=== PATIENT | female | born 1995 | race Caucasian/White ===

== ENCOUNTER 2018-01-17 14:22 | Inpatient (IN) | payer BC ==
[2018-01-17] MEDS ORDERED: Ondansetron 4 MG/2 ML SDV IVPUSH PRN ×2 (15:02→18:30)
[2018-01-17] MEDS ORDERED: Nalbuphine 20 MG/1 ML Amp IVPUSH PRN (15:02)
[2018-01-17] MEDS ORDERED: Sodium Chloride 0.9% 10 ML Syringe FLUSH PRN (15:02)
[2018-01-17] MEDS ORDERED: Oxytocin/Lactated Ringers 10 UNIT/1,000 ML BAG IV SCH ×2 (15:15)
[2018-01-17] MEDS ORDERED: Penicillin G Potassium 5,000,000 Unit Vial ONE (15:19)
[2018-01-17] MEDS: Lactated Ringers 1,000 ML IV SCH ×5 (15:25→23:28)
[2018-01-17] MEDS ORDERED: Penicillin G Potassium 5 MILLUNITS in Sodium Chloride 0.9% 100 ML IV SCH (15:30)
[2018-01-17] MEDS ORDERED: ePHEDrine 50 MG/ML SDV IVPUSH PRN (18:30)
[2018-01-17] MEDS ORDERED: Bupivacaine/fentaNYL/NS 100 ML Bag EPIDUR SCH (18:30)
[2018-01-17] MEDS ORDERED: fentaNYL 100 MCG/2 ML SDV EPIDUR PRN (18:30)
[2018-01-17] MEDS ORDERED: diphenhydrAMINE 50 MG/ML SDV IVPUSH PRN (18:30)
--- NOTE | 2018-01-17 18:30 | PCM.PREANE ---
Preanesthetic Assessment - Anesthesia/Transfusion/Family Hx Anesthesia History: Prior Anesthesia Without Reaction Family History of Anesthesia Reaction: No Transfusion History: No Prior Transfusion(s) - Review of Systems General: No Symptoms Pulmonary: No Symptoms Cardiovascular: No Symptoms Gastrointestinal: No Symptoms Neurological: No Symptoms Other: Reports: None - Physical Assessment Pulse: 95 O2 Sat by Pulse Oximetry: 99 Respiratory Rate: 18 Blood Pressure: 141/89 Vital Signs: Last Vital Signs Temp 36.7 C 01/17/18 15:02 Pulse 95 01/17/18 15:30 Resp 18 01/17/18 15:02 BP 141/89 H 01/17/18 15:30 Pulse Ox Height: 1.63 m Weight: 95.453 kg ASA Class: 2 Mental Status: Alert & Oriented x3 Airway Class: Mallampati = 1 Dentition: Reports: Normal Dentition Thyro-Mental Finger Breadths: 3 Mouth Opening Finger Breadths: 3 ROM/Head Extension: Full Lungs: Clear to Auscultation, Normal Respiratory Effort Cardiovascular: Regular Rate, Regular Rhythm - Lab Values: Laboratory Last Values WBC 9.05 K/mm3 (3.98-10.04) 01/17/18 15:25 RBC 3.64 M/mm3 (3.98-5.22) L 01/17/18 15:25 Hgb 11.1 gm/L (11.2-15.7) L 01/17/18 15:25 Hct 32.0 % (34.1-44.9) L 01/17/18 15:25 MCV 87.9 fl (79.4-94.8) 01/17/18 15:25 MCH 30.5 pg (25.6-32.2) 01/17/18 15:25 MCHC 34.7 g/dl (32.2-35.5) 01/17/18 15:25 RDW Std Deviation 39.9 fL (36.4-46.3) 01/17/18 15:25 Plt Count 253 K/mm3 (182-369) 01/17/18 15:25 MPV 11.1 fl (9.4-12.3) 01/17/18 15:25 Creatinine 0.6 mg/dL (0.55-1.02) 01/17/18 15:25 Est Cr Clr Drug Dosing 123.77 mL/min 01/17/18 15:25 Estimated GFR (MDRD) > 60 mL/min (>60) 01/17/18 15:25 AST 19 U/L (15-37) 01/17/18 15:25 ALT 25 U/L (14-59) 01/17/18 15:25 Blood Type A NEGATIVE 01/17/18 15:25 Gel Antibody Screen Positive 01/17/18 15:25 - Allergies Allergies/Adverse Reactions: Allergies Allergy/AdvReac Type Severity Reaction Status Date / Time No Known Allergies Allergy Verified 01/17/18 15:08 - Acknowledgements Anesthesia Type Planned: Epidural Pt an Appropriate Candidate for the Planned Anesthesia: Yes Alternatives and Risks of Anesthesia Discussed w Pt/Guardian: Yes Pt/Guardian Understands and Agrees with Anesthesia Plan: Yes PreAnesthesia Questionnaire HEENT History: Reports: Allergic Rhinitis, Other (See Below) Other HEENT History: polyps 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 Smoking Status *Q: Former Smoker Tobacco Use Within Last Twelve Months: Cigarettes Recreational Drug Use History: No - HOME MEDS Home Medications: Home Meds PNV95/Ferrous Fumarate/FA [ Tablet] 1 each PO DAILY 01/17/18 [History] - CURRENT (IN HOUSE) MEDS Current Meds: Current Medications Lactated Ringer's (Ringers, Lactated) 1,000 mls @ 40 mls/hr IV ASDIRECTED MANNY Last Admin: 01/17/18 15:25 Dose: 40 mls/hr Oxytocin/Lactated Ringer's (Pitocin In Lr 10 Units/1,000 Ml) 10 unit in 1,000 mls @ 500 mls/hr IV .CONTINUOUS MANNY Oxytocin/Lactated Ringer's (Pitocin In Lr 10 Units/1,000 Ml) 10 unit in 1,000 mls @ 12 mls/hr IV TITRATE MANNY; Protocol Last Titration: 01/17/18 18:06 Dose: 4 munits/min, 24 mls/hr Penicillin G Potassium 5 (millunits/ Sodium Chloride) 100 mls @ 55 mls/hr IV ONETIME MANNY Last Admin: 01/17/18 15:32 Dose: 55 mls/hr Penicillin G Potassium 2.5 (millunits/ Sodium Chloride) 100 mls @ 55 mls/hr IV Q4H MANNY Nalbuphine HCl (Nubain) 10 mg IVPUSH Q2H PRN PRN Reason: Pain (moderate 4-6) Ondansetron HCl (Zofran) 4 mg IVPUSH Q4H PRN PRN Reason: Nausea/Vomiting Sodium Chloride (Saline Flush) 10 ml FLUSH ASDIRECTED PRN PRN Reason: Keep Vein Open Discontinued Medications Penicillin G Potassium (Pfizerpen) Confirm Administered Dose 5 millunits .ROUTE .Sientra-MED ONE Stop: 01/17/18 15:20
[2018-01-17] MEDS: Penicillin G Potassium 2.5 MILLUNITS in Sodium Chloride 0.9% 100 ML IV SCH ×2 (19:32→23:25)
[2018-01-18] MEDS ORDERED: Bupivacaine 0.25% 10 ML SDV ONE (01:00)
--- NOTE | 2018-01-18 02:12 | PCM.LDHP ---
L&D History of Present Illness - General Date of Service: 01/18/18 Admit Problem/Dx: Patient Status Order with Admit Dx/Problem 01/17/18 15:03 Patient Status [ADT] Routine Admission Diagnosis/Problem Admission Diagnosis/Problem High risk Source of Information: Patient History Limitations: Reports: No Limitations - History of Present Illness Introduction:: 23 year old at 37w4d presented to clinic with blood pressures 150s/90-100. No symptoms. PNC with myself c/b GBS positive. 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: Social & Family History - Family History Family Medical History: Noncontributory - Tobacco Use Smoking Status *Q: Former Smoker Years of Tobacco use: 7 Packs/Tins Daily: 0.5 Used Tobacco, but Quit: Yes Month/Year Tobacco Last Used: 05/2017 - Caffeine Use Caffeine Use: Reports: None - Recreational Drug Use Recreational Drug Use: No H&P Review of Systems - Review of Systems: Review Of Systems: See Below General: Reports: No Symptoms HEENT: Reports: No Symptoms Pulmonary: Reports: No Symptoms Cardiovascular: Reports: No Symptoms Gastrointestinal: Reports: No Symptoms Genitourinary: Reports: No Symptoms Musculoskeletal: Reports: No Symptoms Skin: Reports: No Symptoms Psychiatric: Reports: No Symptoms Neurological: Reports: No Symptoms Hematologic/Lymphatic: Reports: No Symptoms Immunologic: Reports: No Symptoms L&D Exam - Exam Exam: See Below - Vital Signs Vital Signs: Last Vital Signs Temp 36.7 C 01/17/18 15:02 Pulse 95 01/17/18 18:30 Resp 18 01/17/18 18:30 BP 141/89 H 01/17/18 18:30 Pulse Ox 99 01/17/18 18:30 Weight: 95.453 kg - OB Specific Fundal Height In cm: 37 Contraction Intensity: Mild Movement: Active Heart Tones: Present Heart Rate (FHR) Variability: Moderate (6-25 bmp) Presentation: Vertex - Urbina Score Urbina Score Cervix Position: Midposition Urbina Score Consistency: Soft Urbina Score Effacement: 31-50% Urbina Score Dilation: 1-2 cm Urbina Score Infant's Station: -2 Urbina Score Total: 6 - Exam General: Alert, Oriented HEENT: PERRLA, Conjunctiva Clear, EACs Clear, EOMI, Hearing Intact, Mucosa Moist & [place], Nares Patent, Normal Nasal Septum, Posterior Pharynx Clear, TMs Clear Neck: Supple, Trachea Midline Lungs: Clear to Auscultation, Normal Respiratory Effort Cardiovascular: Regular Rate, Regular Rhythm GI/Abdominal Exam: Normal Bowel Sounds, Soft, Non-Tender, No Organomegaly, No Distention, No Abnormal Bruit, No Mass, Pelvis Stable Rectal Exam: Normal Exam, Normal Rectal Tone Genitourinary: Normal external exam, Normal bimanual exam, Normal speculum exam Back Exam: Normal Inspection, Full Range of Motion Extremities: Normal Inspection, Normal Range of Motion, Non-Tender, No Pedal Edema, Normal Capillary Refill Neurological: Cranial Nerves Intact, Reflexes Equal Bilateral Psychiatric: Alert, Normal Affect, Normal Mood - Patient Data Lab Results Last 24 hrs: Laboratory Results - last 24 hr 01/17/18 01/17/18 01/17/18 Range/Units 15:25 15:25 15:25 WBC 9.05 (3.98-10.04) K/mm3 RBC 3.64 L (3.98-5.22) M/mm3 Hgb 11.1 L (11.2-15.7) gm/L Hct 32.0 L (34.1-44.9) % MCV 87.9 (79.4-94.8) fl MCH 30.5 (25.6-32.2) pg MCHC 34.7 (32.2-35.5) g/dl RDW Std Deviation 39.9 (36.4-46.3) fL Plt Count 253 (182-369) K/mm3 MPV 11.1 (9.4-12.3) fl Creatinine 0.6 (0.55-1.02) mg/dL Est Cr Clr Drug Dosing 123.77 mL/min Estimated GFR (MDRD) > 60 (>60) mL/min AST 19 (15-37) U/L ALT 25 (14-59) U/L Blood Type Gel Antibody Screen 01/17/18 Range/Units 15:25 WBC (3.98-10.04) K/mm3 RBC (3.98-5.22) M/mm3 Hgb (11.2-15.7) gm/L Hct (34.1-44.9) % MCV (79.4-94.8) fl MCH (25.6-32.2) pg MCHC (32.2-35.5) g/dl RDW Std Deviation (36.4-46.3) fL Plt Count (182-369) K/mm3 MPV (9.4-12.3) fl Creatinine (0.55-1.02) mg/dL Est Cr Clr Drug Dosing mL/min Estimated GFR (MDRD) (>60) mL/min AST (15-37) U/L ALT (14-59) U/L Blood Type A NEGATIVE Gel Antibody Screen Positive Result Diagrams: 01/17/18 15:25 01/17/18 15:25 Problem List Initiated/Reviewed/Updated: Yes Orders Last 24hrs: Active Orders 24 hr Category Date Time Status Patient Status [ADT] Routine ADT 01/17/18 15:03 Active Activity as Tolerated [RC] PFP Care 01/17/18 15:02 Active Communication Order [RC] ASDIRECTED Care 01/17/18 15:02 Active Communication Order [RC] ASDIRECTED Care 01/17/18 15:02 Active Communication Order [RC] ASDIRECTED Care 01/17/18 15:02 Active Monitoring [RC] CONTINUOUS Care 01/17/18 15:02 Active Notify Provider Status Change [RC] ASDIRECTED Care 01/17/18 15:02 Active Notify Provider Vital Signs [RC] ASDIRECTED Care 01/17/18 15:02 Active Notify Provider [RC] ASDIRECTED Care 01/17/18 15:02 Active Notify Provider [RC] ASDIRECTED Care 01/17/18 18:30 Active Notify Provider [RC] PRN Care 01/17/18 15:02 Active Oxygen Therapy [RC] PRN Care 01/17/18 15:02 Active Peripheral IV Care [RC] . DIRECTED Care 01/17/18 15:06 Active Vital Signs [RC] ASDIRECTED Care 01/17/18 15:02 Active Regular Diet [DIET] Diet 01/17/18 Dinner Active ANTIBODY IDENTIFICATION [BBK] Stat Lab 01/17/18 15:25 Results PATIENT RETYPE [BBK] Stat Lab 01/17/18 15:25 Results TYPE AND SCREEN [BBK] Stat Lab 01/17/18 15:25 Results Bupivacaine/fentaNYL/NS [fentaNYL/Bupivacaine/NS 2 MCG- Med 01/17/18 18:30 Active 0.125% 100 ML] 100 ml EPIDUR ASDIRECTED Lactated Ringers [Ringers, Lactated] 1,000 ml Med 01/17/18 15:15 Active IV ASDIRECTED Nalbuphine [Nubain] Med 01/17/18 15:02 Active 10 mg IVPUSH Q2H PRN Ondansetron [Zofran] Med 01/17/18 18:30 Active 4 mg IVPUSH ONETIME PRN Ondansetron [Zofran] Med 01/17/18 15:02 Active 4 mg IVPUSH Q4H PRN Oxytocin/Lactated Ringers [Pitocin in LR 10 Units/1,000 Med 01/17/18 15:15 Active ML] 10 unit in 1,000 ml IV .CONTINUOUS Oxytocin/Lactated Ringers [Pitocin in LR 10 Units/1,000 Med 01/17/18 15:15 Active ML] 10 unit in 1,000 ml IV TITRATE Penicillin G Potassium [Pfizerpen] 2.5 millunits Med 01/17/18 19:30 Active Sodium Chloride 0.9% [Normal Saline] 100 ml IV Q4H Penicillin G Potassium [Pfizerpen] 5 millunits Med 01/17/18 15:30 Active Sodium Chloride 0.9% [Normal Saline] 100 ml IV ONETIME Sodium Chloride 0.9% [Saline Flush] Med 01/17/18 15:02 Active 10 ml FLUSH ASDIRECTED PRN diphenhydrAMINE [Benadryl] Med 01/17/18 18:30 Active 25 mg IVPUSH Q6H PRN ePHEDrine [ePHEDrine Sulfate] Med 01/17/18 18:30 Active 5 mg IVPUSH ASDIRECTED PRN fentaNYL [Sublimaze] Med 01/17/18 18:30 Active 100 mcg EPIDUR ONETIME PRN Blood Pressure [OM.PC] ASDIRECTED Oth 01/17/18 15:15 Ordered Deep Tendon Reflexes [WOMSER] ASDIRECTED Oth 01/17/18 15:15 Ordered Peripheral IV Insertion Adult [OM.PC] Urgent Oth 01/17/18 15:02 Ordered Resuscitation Status Routine Resus Stat 01/17/18 15:02 Ordered Medication Orders Diphenhydramine HCl (Benadryl) 25 mg IVPUSH Q6H PRN PRN Reason: Pruritis Ephedrine Sulfate (Ephedrine Sulfate) 5 mg IVPUSH ASDIRECTED PRN PRN Reason: Hypotension Fentanyl (Sublimaze) 100 mcg EPIDUR ONETIME PRN PRN Reason: Pain Last Admin: 01/17/18 21:08 Dose: 100 mcg Fentanyl/Bupivacaine HCl (Fentanyl/Bupivacaine/Ns 2 Mcg-0.125% 100 Ml) 100 ml EPIDUR ASDIRECTED MANNY Last Admin: 01/17/18 21:08 Dose: 100 ml Lactated Ringer's (Ringers, Lactated) 1,000 mls @ 40 mls/hr IV ASDIRECTED MANNY Last Admin: 01/17/18 23:28 Dose: 40 mls/hr Infusion: 01/17/18 23:28 Dose: 40 mls/hr Admin: 01/17/18 21:47 Dose: 40 mls/hr Infusion: 01/17/18 21:47 Dose: 40 mls/hr Admin: 01/17/18 21:30 Dose: 40 mls/hr Infusion: 01/17/18 21:30 Dose: 40 mls/hr Admin: 01/17/18 20:29 Dose: 40 mls/hr Infusion: 01/17/18 20:29 Dose: 40 mls/hr Admin: 01/17/18 15:25 Dose: 40 mls/hr Oxytocin/Lactated Ringer's (Pitocin In Lr 10 Units/1,000 Ml) 10 unit in 1,000 mls @ 500 mls/hr IV .CONTINUOUS MANNY Oxytocin/Lactated Ringer's (Pitocin In Lr 10 Units/1,000 Ml) 10 unit in 1,000 mls @ 12 mls/hr IV TITRATE MANNY; Protocol Last Titration: 01/18/18 00:24 Dose: 8 munits/min, 48 mls/hr Titration: 01/17/18 23:40 Dose: 6 munits/min, 36 mls/hr Titration: 01/17/18 22:41 Dose: 4 munits/min, 24 mls/hr Titration: 01/17/18 22:10 Dose: 3 munits/min, 18 mls/hr Titration: 01/17/18 21:55 Dose: 1 munits/min, 6 mls/hr Titration: 01/17/18 21:41 Dose: 0 munits/min, 0 mls/hr Titration: 01/17/18 21:15 Dose: 3 munits/min, 18 mls/hr Titration: 01/17/18 20:22 Dose: 6 munits/min, 36 mls/hr Titration: 01/17/18 20:00 Dose: 7 munits/min, 42 mls/hr Titration: 01/17/18 18:31 Dose: 5 munits/min, 30 mls/hr Titration: 01/17/18 18:06 Dose: 4 munits/min, 24 mls/hr Titration: 01/17/18 16:23 Dose: 3 munits/min, 18 mls/hr Admin: 01/17/18 15:29 Dose: 2 munits/min, 12 mls/hr Penicillin G Potassium 5 (millunits/ Sodium Chloride) 100 mls @ 55 mls/hr IV ONETIME [facility] Last Admin: 01/17/18 15:32 Dose: 55 mls/hr Penicillin G Potassium 2.5 (millunits/ Sodium Chloride) 100 mls @ 55 mls/hr IV Q4H [facility] Last Admin: 01/17/18 23:25 Dose: 55 mls/hr Infusion: 01/17/18 21:22 Dose: 55 mls/hr Admin: 01/17/18 19:32 Dose: 55 mls/hr Nalbuphine HCl (Nubain) 10 mg IVPUSH Q2H PRN PRN Reason: Pain (moderate 4-6) Ondansetron HCl (Zofran) 4 mg IVPUSH Q4H PRN PRN Reason: Nausea/Vomiting Ondansetron HCl (Zofran) 4 mg IVPUSH ONETIME PRN PRN Reason: Nausea/Vomiting Sodium Chloride (Saline Flush) 10 ml FLUSH ASDIRECTED PRN PRN Reason: Keep Vein Open Assessment/Plan Comment:: Mild pre-ecclampsia. Discussed in [place] today with patient at appointment not safe to travel to [place] for delivery. Discussed and received approval from insurance for delivery in [place]. Admit. Labs. Pitocin. Anticipate
--- NOTE | 2018-01-18 02:15 | PCM.DEL ---
L & D Note - General Info Date of Service: 01/18/18 - Delivery Note Labor: Spontaneous, Induced by Oxytocin Delivery Outcome: Livebirth Delivery Mode: Spontaneous Presentation: Vertex Anesthesia Type: None Episiotomy Type: None Laceration: 2nd Degree Placenta: Intact, Spontaneous Score 1 min: 8 Score 5 min: 9 Delivery Comments (Free Text/Narrative):: Stage 1- Progressed nicely to complete with epidural anesthesia. Pitocin induction Stage 2- of viable female. SELENA. Body and shoulders followed atraumatically over small 2nd degree MLL Stage 3. of intact placenta. 3vc. Laceration repaired with 2-0 vicryl rapide. EBL 200. Induction Criteria - Urbina Score Urbina Score Dilation: 1-2 cm Urbina Score Effacement: 40-50% Urbina Score Infant's Station: -1 ,0 Urbina Score Consistency: Medium Urbina Score Cervix Position: Midposition Urbina Score Total: 6 Urbina Score Presenting Part: Reports: Cephalic - Induction Gestational Age >/= 39 wks: No Medical Indication: Mild pre-ecclampsia Estimated Pelvis: Reports: Adequate Reassuring Monitoring Strip: Yes Absence of Tachy Systole: Yes - Augmentation Weight Estimated:: Reports: AGA Reassuring Monitoring Strip: Yes Absence of Tachy Systole: Yes - Patient Data Vitals - Most Recent: Last Vital Signs Temp 36.7 C 01/17/18 15:02 Pulse 95 01/17/18 18:30 Resp 18 01/17/18 18:30 BP 141/89 H 01/17/18 18:30 Pulse Ox 99 01/17/18 18:30 Weight - Most Recent: 95.453 kg I&O - Last 24 Hours: Intake & Output 01/17/18 01/17/18 01/18/18 14:59 22:59 06:59 Intake Total 0 Balance 0 Lab Results Last 24 Hours: Laboratory Results - last 24 hr 01/17/18 01/17/18 01/17/18 Range/Units 15:25 15:25 15:25 WBC 9.05 (3.98-10.04) K/mm3 RBC 3.64 L (3.98-5.22) M/mm3 Hgb 11.1 L (11.2-15.7) gm/L Hct 32.0 L (34.1-44.9) % MCV 87.9 (79.4-94.8) fl MCH 30.5 (25.6-32.2) pg MCHC 34.7 (32.2-35.5) g/dl RDW Std Deviation 39.9 (36.4-46.3) fL Plt Count 253 (182-369) K/mm3 MPV 11.1 (9.4-12.3) fl Creatinine 0.6 (0.55-1.02) mg/dL Est Cr Clr Drug Dosing 123.77 mL/min Estimated GFR (MDRD) > 60 (>60) mL/min AST 19 (15-37) U/L ALT 25 (14-59) U/L Blood Type Gel Antibody Screen 01/17/18 Range/Units 15:25 WBC (3.98-10.04) K/mm3 RBC (3.98-5.22) M/mm3 Hgb (11.2-15.7) gm/L Hct (34.1-44.9) % MCV (79.4-94.8) fl MCH (25.6-32.2) pg MCHC (32.2-35.5) g/dl RDW Std Deviation (36.4-46.3) fL Plt Count (182-369) K/mm3 MPV (9.4-12.3) fl Creatinine (0.55-1.02) mg/dL Est Cr Clr Drug Dosing mL/min Estimated GFR (MDRD) (>60) mL/min AST (15-37) U/L ALT (14-59) U/L Blood Type A NEGATIVE Gel Antibody Screen Positive Med Orders - Current: Current Medications Diphenhydramine HCl (Benadryl) 25 mg IVPUSH Q6H PRN PRN Reason: Pruritis Ephedrine Sulfate (Ephedrine Sulfate) 5 mg IVPUSH ASDIRECTED PRN PRN Reason: Hypotension Fentanyl (Sublimaze) 100 mcg EPIDUR ONETIME PRN PRN Reason: Pain Last Admin: 01/17/18 21:08 Dose: 100 mcg Fentanyl/Bupivacaine HCl (Fentanyl/Bupivacaine/Ns 2 Mcg-0.125% 100 Ml) 100 ml EPIDUR ASDIRECTED MANNY Last Admin: 01/17/18 21:08 Dose: 100 ml Lactated Ringer's (Ringers, Lactated) 1,000 mls @ 40 mls/hr IV ASDIRECTED MANNY Last Admin: 01/17/18 23:28 Dose: 40 mls/hr Oxytocin/Lactated Ringer's (Pitocin In Lr 10 Units/1,000 Ml) 10 unit in 1,000 mls @ 500 mls/hr IV .CONTINUOUS MANNY Oxytocin/Lactated Ringer's (Pitocin In Lr 10 Units/1,000 Ml) 10 unit in 1,000 mls @ 12 mls/hr IV TITRATE MANNY; Protocol Last Titration: 01/18/18 00:24 Dose: 8 munits/min, 48 mls/hr Penicillin G Potassium 5 (millunits/ Sodium Chloride) 100 mls @ 55 mls/hr IV ONETIME MANNY Last Admin: 01/17/18 15:32 Dose: 55 mls/hr Penicillin G Potassium 2.5 (millunits/ Sodium Chloride) 100 mls @ 55 mls/hr IV Q4H MANNY Last Admin: 01/17/18 23:25 Dose: 55 mls/hr Nalbuphine HCl (Nubain) 10 mg IVPUSH Q2H PRN PRN Reason: Pain (moderate 4-6) Ondansetron HCl (Zofran) 4 mg IVPUSH Q4H PRN PRN Reason: Nausea/Vomiting Ondansetron HCl (Zofran) 4 mg IVPUSH ONETIME PRN PRN Reason: Nausea/Vomiting Sodium Chloride (Saline Flush) 10 ml FLUSH ASDIRECTED PRN PRN Reason: Keep Vein Open Discontinued Medications Penicillin G Potassium (Pfizerpen) Confirm Administered Dose 5 millunits .ROUTE .STK-MED ONE Stop: 01/17/18 15:20 - Problem List Review Problem List Initiated/Reviewed/Updated: Yes - My Orders Last 24 Hours: My Active Orders 01/17/18 Dinner Regular Diet [DIET] - Plan Plan:: Mild pre-ecclampsia. Discussed in [place] today with patient at appointment not safe to travel to [place] for delivery. Discussed and received approval from insurance for delivery in [place]. Admit. Labs. Pitocin. Anticipate
[2018-01-18] MEDS: Penicillin G Potassium 2.5 MILLUNITS in Sodium Chloride 0.9% 100 ML IV SCH ×3 (05:40→18:39)
[2018-01-18] MEDS ORDERED: Witch Hazel Medicated Pads 100/Jar TOP PRN (05:50)
[2018-01-18] MEDS ORDERED: Benzocaine/Menthol 20%-0.5% Spray 56 GM Canister TOP PRN (05:51)
[2018-01-18] MEDS: Ibuprofen 600 MG Tab PO PRN ×4 (06:25→21:09)
--- NOTE | 2018-01-18 07:30 | PCM48HPAN ---
Post Anesthesia Note - EVALUATION WITHIN 48HRS OF ANESTHETIC Vital Signs in Normal Range: Yes Patient Participated in Evaluation: Yes Respiratory Function Stable: Yes Airway Patent: Yes Cardiovascular Function Stable: Yes Hydration Status Stable: Yes Pain Control Satisfactory: Yes Nausea and Vomiting Control Satisfactory: Yes Mental Status Recovered: Yes Pulse Rate: 95 Resp Rate: 18 Blood Pressure: 141/89 - COMMENTS/OBSERVATIONS Free Text/Narrative:: no anesthesia complications noted
[2018-01-18] MEDS: Labetalol 100 MG Tab PO SCH ×2 (17:37→20:55)
--- NOTE | 2018-01-19 06:50 | PCM.DCSUM1 ---
Discharge Summary - Hospital Course Brief History: Admitted for induction for pre-ecclampsia. Reassuring heart tones. Progressed to complete and uncomplicated . - Discharge Data Discharge Date: 01/19/18 Discharge Disposition: Home, Self-Care 01 Condition: Good - Patient Instructions Diet: Usual Diet as Tolerated Activity: No Strenuous Activities, Rest and Relax Today Activity, Other: pelvic rest Driving: May Drive Today Showering/Bathing: May Shower Wound/Incision Care: Keep Operative Site/Wound Site Clean and Dry Notify Provider of: Fever, Increased Pain, Swelling and Redness, Drainage, Nausea and/or Vomiting - Discharge Plan Prescriptions/Med Rec: Ibuprofen [IJD: Ibuprofen] 600 mg PO Q6H PRN #60 tablet PRN Reason: Pain Labetalol [Normodyne] 100 mg PO BID 14 Days #28 tablet Home Medications: Home Meds PNV95/Ferrous Fumarate/FA [ Tablet] 1 each PO DAILY 01/17/18 [History] Benzocaine/Menthol [Dermoplast Pain Relief [place]] 1 gm TOP ASDIRECTED PRN canister 01/19/18 [Rx] Ibuprofen [IJD: Ibuprofen] 600 mg PO Q6H PRN #60 tablet 01/19/18 [Rx] Labetalol [Normodyne] 100 mg PO BID 14 Days #28 tablet 01/19/18 [Rx] Referrals: Lesley Richmond MD [Primary Care Provider] - (1-2 weeks for blood pressure recheck) - Discharge Summary/Plan Comment DC Time >30 min.: No - General Info Date of Service: 01/19/18 - Review of Systems General: Reports: No Symptoms HEENT: Reports: No Symptoms Pulmonary: Reports: No Symptoms Cardiovascular: Reports: No Symptoms Gastrointestinal: Reports: No Symptoms Genitourinary: Reports: No Symptoms Musculoskeletal: Reports: No Symptoms Skin: Reports: No Symptoms Neurological: Reports: No Symptoms Psychiatric: Reports: No Symptoms - Patient Data Vitals - Most Recent: Last Vital Signs Temp 36.4 C 01/19/18 04:17 Pulse 91 01/19/18 04:17 Resp 16 01/19/18 04:17 BP 151/86 H 01/19/18 04:17 Pulse Ox 100 01/19/18 04:17 Weight - Most Recent: 95.453 kg I&O - Last 24 hours: Intake & Output 01/18/18 01/18/18 01/19/18 14:59 22:59 06:59 Intake Total 0 Balance 0 Lab Results - Last 24 hrs: Laboratory Results - last 24 hr 01/18/18 Range/Units 06:43 Blood Type Cancelled Gel Antibody Screen Cancelled Screen 0 ros/5 flds - neg RhIG Candidate? Yes Rhogam Indicated Cancelled Med Orders - Current: Current Medications Benzocaine/Menthol (Dermoplast Pain Relief [place]) 1 gm TOP ASDIRECTED PRN PRN Reason: Pain Last Admin: 01/18/18 06:24 Dose: 1 applic Diphenhydramine HCl (Benadryl) 25 mg IVPUSH Q6H PRN PRN Reason: Pruritis Ephedrine Sulfate (Ephedrine Sulfate) 5 mg IVPUSH ASDIRECTED PRN PRN Reason: Hypotension Fentanyl (Sublimaze) 100 mcg EPIDUR ONETIME PRN PRN Reason: Pain Last Admin: 01/17/18 21:08 Dose: 100 mcg Fentanyl/Bupivacaine HCl (Fentanyl/Bupivacaine/Ns 2 Mcg-0.125% 100 Ml) 100 ml EPIDUR ASDIRECTED MANNY Last Admin: 01/17/18 21:08 Dose: 100 ml Lactated Ringer's (Ringers, Lactated) 1,000 mls @ 40 mls/hr IV ASDIRECTED MANNY Last Admin: 01/17/18 23:28 Dose: 40 mls/hr Oxytocin/Lactated Ringer's (Pitocin In Lr 10 Units/1,000 Ml) 10 unit in 1,000 mls @ 500 mls/hr IV .CONTINUOUS MANNY Oxytocin/Lactated Ringer's (Pitocin In Lr 10 Units/1,000 Ml) 10 unit in 1,000 mls @ 12 mls/hr IV TITRATE MANNY; Protocol Last Titration: 01/18/18 00:24 Dose: 8 munits/min, 48 mls/hr Penicillin G Potassium 2.5 (millunits/ Sodium Chloride) 100 mls @ 55 mls/hr IV Q4H MANNY Last Admin: 01/18/18 18:39 Dose: Not Given Ibuprofen (Motrin) 600 mg PO Q6H PRN PRN Reason: Pain Last Admin: 01/18/18 21:09 Dose: 600 mg Labetalol HCl (Normodyne) 100 mg PO BID MANNY Last Admin: 01/18/18 20:55 Dose: 100 mg Nalbuphine HCl (Nubain) 10 mg IVPUSH Q2H PRN PRN Reason: Pain (moderate 4-6) Ondansetron HCl (Zofran) 4 mg IVPUSH Q4H PRN PRN Reason: Nausea/Vomiting Ondansetron HCl (Zofran) 4 mg IVPUSH ONETIME PRN PRN Reason: Nausea/Vomiting Sodium Chloride (Saline Flush) 10 ml FLUSH ASDIRECTED PRN PRN Reason: Keep Vein Open [place] (Tucks) 1 pad TOP ASDIRECTED PRN PRN Reason: Pain Last Admin: 01/18/18 06:24 Dose: 1 applic Discontinued Medications Bupivacaine HCl (Sensorcaine-Mpf 0.25%) 10 ml .ROUTE .STK-MED ONE Stop: 01/18/18 01:01 Penicillin G Potassium 5 (millunits/ Sodium Chloride) 100 mls @ 55 mls/hr IV ONETIME [facility] Last Admin: 01/17/18 15:32 Dose: 55 mls/hr Penicillin G Potassium (Pfizerpen) Confirm Administered Dose 5 millunits .ROUTE .STK-MED ONE Stop: 01/17/18 15:20 Last Admin: 01/18/18 05:40 Dose: Not Given - Exam General: Reports: Alert, Oriented HEENT: Reports: Pupils Equal, Pupils Reactive, EOMI, Mucous Membr. Moist/[place] Neck: Reports: Supple Lungs: Reports: Clear to Auscultation, Normal Respiratory Effort Cardiovascular: Reports: Regular Rate, Regular Rhythm GI/Abdominal Exam: Normal Bowel Sounds, Soft, Non-Tender, No Organomegaly, No Distention, No Abnormal Bruit, No Mass, Pelvis Stable (Female) Exam: Normal External Exam, Normal Speculum Exam, Normal Bimanual Exam Back Exam: Reports: Normal Inspection, Full Range of Motion Extremities: Normal Inspection, Normal Range of Motion, Non-Tender, No Pedal Edema, Normal Capillary Refill Skin: Reports: Warm, Dry, Intact Neurological: Reports: No New Focal Deficit Psy/Mental Status: Reports: Alert, Normal Affect, Normal Mood
[2018-01-19] MEDS: Labetalol 100 MG Tab PO SCH (08:22)
[2018-01-19] MEDS: Ibuprofen 600 MG Tab PO PRN (08:23)
== END 2018-01-19 10:25 | disposition home or self-care (01) | DRG 560 ==
LOC: JD.OB 14:22 → OBSVTOIN 01-18 01:50 → JD.MS 01-18 01:51 → JD.OB 01-18 17:35
PROVIDERS: ADMIT Obstetrics & Gynecology; ATTEND Obstetrics & Gynecology
PROC: 00HU33Z Insertion of Infusion Device into Spinal Canal, Percutaneous Approach (ICD-10-PCS; 2018-01-17)
PROC: 3E0R3BZ Introduction of Anesthetic Agent into Spinal Canal, Percutaneous Approach (ICD-10-PCS; 2018-01-17)
PROC: 0KQM0ZZ Repair Perineum Muscle, Open Approach (ICD-10-PCS; principal; 2018-01-18)
PROC: 10E0XZZ Delivery of Products of Conception, External Approach (ICD-10-PCS; principal; 2018-01-18)
PROC: 3E033VJ Introduction of Other Hormone into Peripheral Vein, Percutaneous Approach (ICD-10-PCS; principal; 2018-01-18)
DX: O14.04 Mild to moderate pre-eclampsia, complicating childbirth (principal); O99.824 Streptococcus B carrier state complicating childbirth; Z3A.37 37 weeks gestation of pregnancy; Z37.0 Single live birth; Z87.891 Personal history of nicotine dependence; O70.1 Second degree perineal laceration during delivery
CPT/HCPCS: 36415; 51702; 59025; 59300; 59409; 82565; 84450; 84460; 85027; 85461; A9270-GY; J2540; J2590; J2790; J3010; J7030; J7120